=== PATIENT | female | born 1995 | race Caucasian/White ===

== ENCOUNTER 2022-03-21 21:48 | Emergency (ER) | payer SELFPAY ==
[2022-03-21 21:53] VITALS: BP 198/85; PULSE 80; RESP 18; TEMP 36.3; O2SAT 99
[2022-03-22 00:38] VITALS: BP 127/82; PULSE 87; RESP 18; O2SAT 99
--- NOTE | 2022-03-22 00:46 | ED.GENADULT ---
HPI - General Adult General Chief complaint: Upper Respiratory Infection Stated complaint: cough/shortness of breath Time Seen by Provider: 03/22/22 00:25 History of Present Illness HPI narrative: Patient is a 27-year-old female who presents ER with cough. Ongoing over the last week. Worse when she lays down to go to bed and coughs throughout the night. Productive of mcduffie phlegm. Had a negative COVID test just prior to arrival. No fevers or chills. No known sick contacts. Has been taking Hyl[place] cold and mucus and natural cold remedy that is sold [id number]. No pain in the ears or dizziness. No exertional dyspnea. Related Data Allergies Allergy/AdvReac Type Severity Reaction Status Date / Time No Known Allergies Allergy Unverified 06/15/17 23:31 Review of Systems Review of Systems: All systems reviewed & are unremarkable except as noted in HPI and below Constitutional: Constitutional: Denies chills, Denies fatigue and Denies fever(s) ENT: Denies nasal congestion and Reports sore throat Comments: Occasional postnasal drip Cardiovascular: Cardiovascular: Denies chest pain, Denies rapid heart rate and Denies radiating jaw, neck or arm pain Respiratory: Respiratory: Reports cough and Reports dyspnea Gastrointestinal: Gastrointestinal: Denies abdominal pain, Denies nausea and Denies vomiting Exam Narrative: GENERAL: Well-appearing, well-nourished, and in no acute distress. HEAD: Normocephalic, atraumatic. EYES: PERRL and EOMI. ENT: Mucous membranes moist. Normal-appearing posterior oropharynx. TMs normal bilaterally. Small amount of cerumen right ear canal. NECK: Supple. CHEST: Clear to auscultation. No respiratory distress. HEART: Regular rate and rhythm. Normal peripheral pulses. EXTREMITIES: Normal range of motion. No edema. NEURO: Alert and oriented x3. PSYCH: Normal mood and affect. Course Course Emergency Course: Lungs clear. History and exam consistent with upper respiratory infection. Blood pressure normal on repeat evaluation. Discharge home. Recommend mucinex dm. Vital Signs Vital signs: Vital Signs Temperature 97.3 F L 03/21/22 21:53 Pulse Rate 80 03/21/22 21:53 Respiratory Rate 18 03/21/22 21:53 Blood Pressure 198/85 H 03/21/22 21:53 Pulse Oximetry 99 03/21/22 21:53 Oxygen Delivery Room Air 03/21/22 21:53 Temperature 97.3 F L 03/21/22 21:53 Pulse Rate 87 03/22/22 00:38 Respiratory Rate 18 03/22/22 00:38 Blood Pressure 127/82 03/22/22 00:38 Pulse Oximetry 99 03/22/22 00:38 Oxygen Delivery Room Air 03/22/22 00:38 Medical Decision Making Vital Signs Vital Signs: Vital Signs Temperature 97.3 F L 03/21/22 21:53 Pulse Rate 80 03/21/22 21:53 Respiratory Rate 18 03/21/22 21:53 Blood Pressure 198/85 H 03/21/22 21:53 Pulse Oximetry 99 03/21/22 21:53 Oxygen Delivery Room Air 03/21/22 21:53 Temperature 97.3 F L 03/21/22 21:53 Pulse Rate 87 03/22/22 00:38 Respiratory Rate 18 03/22/22 00:38 Blood Pressure 127/82 03/22/22 00:38 Pulse Oximetry 99 03/22/22 00:38 Oxygen Delivery Room Air 03/22/22 00:38 Discharge Plan Discharge Clinical Impression: Acute viral syndrome Patient Disposition: Home, Self-Care Condition: Stable Instructions: Viral Syndrome (ED) Additional Instructions: Return the ER if you have fever over 100.4 ?F, you cannot keep down food or water, you have chest pain or shortness of breath, you have additional concerns. Prescriptions: New Mucinex DM 30-600 mg tablet extended release 12 hr 1 tablet PO Q12H Qty: 10 0RF Follow-up/Referrals: Nicole Velez MD [Physician] - 1 Week PHYSICIAN,[employer] [Primary Care Provider] -
[2022-03-22 01:59] VITALS: BP 116/69; PULSE 70; RESP 18; O2SAT 100
== END 2022-03-22 02:20 | disposition home or self-care (01) ==
PROVIDERS: Emergency Provider Emergency Medicine
DX: J06.9 Acute upper respiratory infection, unspecified (principal)
CPT/HCPCS: 99283

== ENCOUNTER 2022-06-28 00:55 | Emergency (ER) | payer OTHER, SELFPAY ==
--- NOTE | ~2022-06-28 | XR_ITS ---
EXAMINATION: XR foot RT min 3V DATE: 06/28/2022 01:24 INDICATION: Right foot pain. Injury. TECHNIQUE: 4 views of right foot were obtained. COMPARISON: None. FINDINGS: There is mild hallux valgus. No fracture. There is mild osteoarthritis of first metatarsoph alangeal joint and talonavicular joint. IMPRESSION: 1. Mild polyarticular osteoarthritis. 2. Mild hallux valgus. Reviewed, dictated and finalized at location A.
[2022-06-28 01:03] VITALS: BP 152/92; PULSE 108; RESP 12; TEMP 36.9; O2SAT 100
--- NOTE | 2022-06-28 01:19 | ED.LOWEXIN ---
HPI - Extremity Injury (Lower) General Chief Complaint: Extremity Injury, Lower <Whitney Ruiz PA-C - Last Filed: 06/28/22 02:44> Stated Complaint: right foot injury <Whitney Ruiz PA-C - Last Filed: 06/28/22 02:44> Time Seen by Provider: 06/28/22 00:59 <Whitney Ruiz PA-C - Last Filed: 06/28/22 02:44> Source: patient <Whitney Ruiz PA-C - Last Filed: 06/28/22 02:44> Mode of arrival: ambulatory <Whitney Ruiz PA-C - Last Filed: 06/28/22 02:44> Limitations: no limitations <Whitney Ruiz PA-C - Last Filed: 06/28/22 02:44> History of Present Illness HPI Narrative: This is a 27 year old female that presents to the ER for right foot pain after an injury today. Reports she had a pellet hit her foot at work. Reports swelling and pain in the area. Denies decreased range of motion or numbness. <Whitney Ruiz PA-C - Last Filed: 06/28/22 02:44> Related Data Allergies/Adverse Reactions: Allergies Allergy/AdvReac Type Severity Reaction Status Date / Time No Known Allergies Allergy Unverified 06/15/17 23:31 <Whitney Ruiz PA-C - Last Filed: 06/28/22 02:44> Review of Systems Review of Systems: CONSTITUTIONAL: Denies fever MUSCULOSKELETAL: Reports joint pain, and myalgia. NEUROLOGIC: Denies numbness <Whitney Ruiz PA-C - Last Filed: 06/28/22 02:44> All systems reviewed & are unremarkable except as noted in HPI and below <Whitney Ruiz PA-C - Last Filed: 06/28/22 02:44> [facility] Past Medical History Medical History: Medical History (Updated 06/28/22 @ 02:44 by Whitney Ruiz PA-C) No active medical problems <Whitney Ruiz PA-C - Last Filed: 06/28/22 02:44> Social History Social History: Social History (Updated 06/28/22 @ 01:21 by Whitney Ruiz PA-C) Smoking status: Never smoker <Whitney Ruiz PA-C - Last Filed: 06/28/22 02:44> Exam Narrative: GENERAL: Well-appearing, well-nourished, and in no acute distress. HEAD: Normocephalic, atraumatic. EYES: EOMI. EXTREMITIES: Normal range of motion. Mild edema about the right foot dorsal surface. Normal DP pulse. Normal sensation SKIN: Warm, dry, no rash. NEURO: No focal deficits. Alert and oriented x3. PSYCH: Normal mood and affect <Whitney Ruiz PA-C - Last Filed: 06/28/22 02:44> Course LINE INSTALLER/PA Physician Supervision I examined this patient. I discussed this patient with WILLIAM Ruiz. I agree with the assessment and plan as documented. <Romel Francois MD - Last Filed: 06/28/22 06:32> Vital Signs Vital signs: Vital Signs Temperature 98.4 F 06/28/22 01:03 Pulse Rate 108 H 06/28/22 01:03 Respiratory Rate 12 06/28/22 01:03 Blood Pressure 152/92 H 06/28/22 01:03 Pulse Oximetry 100 06/28/22 01:03 Oxygen Delivery Room Air 06/28/22 01:03 Temperature 98.4 F 06/28/22 01:03 Pulse Rate 108 H 06/28/22 01:03 Respiratory Rate 12 06/28/22 01:03 Blood Pressure 152/92 H 06/28/22 01:03 Pulse Oximetry 100 06/28/22 01:03 Oxygen Delivery Room Air 06/28/22 01:03 <Whitney Ruiz PA-C - Last Filed: 06/28/22 02:44> Vital Signs Temperature 98.4 F 06/28/22 01:03 Pulse Rate 108 H 06/28/22 01:03 Respiratory Rate 12 06/28/22 01:03 Blood Pressure 152/92 H 06/28/22 01:03 Pulse Oximetry 100 06/28/22 01:03 Oxygen Delivery Room Air 06/28/22 01:03 Temperature 98.4 F 06/28/22 01:03 Pulse Rate 108 H 06/28/22 01:03 Respiratory Rate 12 06/28/22 01:03 Blood Pressure 152/92 H 06/28/22 01:03 Pulse Oximetry 100 06/28/22 01:03 Oxygen Delivery Room Air 06/28/22 01:03 <Romel Francois MD - Last Filed: 06/28/22 06:32> MDM - Extremity Injury (Lower) MDM Narrative Medical decision making narrative: Patient presents to the emergency department after a right foot injury today at work. Patient is neurovascularly intact. No acute osseous abnormalities noted on x-ray. Patient placed in a postop sh
[2022-06-28] MEDS: HYDROcodone/acetaminophen (*CRX) 5-325 MG TABLET 1 TAB PO (01:53)
== END 2022-06-28 02:58 | disposition home or self-care (01) ==
PROVIDERS: Emergency Provider Preventive Medicine Aerospace Medicine
DX: M79.671 Pain in right foot (principal)
CPT/HCPCS: 73630; 99283; A9270

== ENCOUNTER 2023-05-31 13:44 | Emergency (ER) | payer OTHER, SELFPAY ==
--- NOTE | ~2023-05-31 | XR_ITS ---
EXAMINATION: XR finger 2nd RT min 2V DATE: 05/31/2023 14:03 INDICATION: Right hand second digit injury. TECHNIQUE: 3 views of right hand second digit were obtained. COMPARISON: None. FINDINGS: Bone alignment is normal. No fracture. Joint spaces are normal. IMPRESSION: 1. No fracture. Reviewed, dictated and finalized at location A. IMPRESSION: 1. No fracture.
[2023-05-31 13:48] VITALS: BP 159/74; PULSE 92; RESP 16; TEMP 36.6; O2SAT 99
--- NOTE | 2023-05-31 16:13 | ED.WOUNDLAC ---
HPI - Wound/Laceration General Chief Complaint: Wound/Laceration Stated Complaint: laceration Time Seen by Provider: 05/31/23 15:30 History of Present Illness HPI narrative: 28-year-old female reports for evaluation for a laceration to the plantar aspect of her right second PIP that occurred 6 hours prior to arrival. Patient states she was at work and accidentally cut herself on the tape dispenser. Bleeding controlled. Tetanus is up-to-date. Related Data Home Medications Medication Instructions Recorded Confirmed No Home Medications 07/04/22 07/04/22 Allergies Allergy/AdvReac Type Severity Reaction Status Date / Time No Known Allergies Allergy Verified 05/31/23 15:52 Review of Systems Review of Systems: CONSTITUTIONAL: Denies fever, chills EYES: Denies visual changes, redness, or discharge. ENT: Denies rhinorrhea, congestion, sore throat, or otalgia. CARDIOVASCULAR: Denies chest pain, palpitations, or edema. RESPIRATORY: Denies cough or dyspnea. GASTROINTESTINAL: Denies abdominal pain, nausea, vomiting, or diarrhea. GENITOURINARY: Denies dysuria or hematuria. SKIN: See HPI MUSCULOSKELETAL: Denies back pain, joint pain, or myalgia. NEUROLOGIC: Denies headache, numbness, dizziness, or weakness. PSYCHIATRIC: Denies anxiety or depression. [facility] Past Medical History Medical History No active medical problems Family History Family History Mother Diabetes type 1, controlled Sibling Diabetes type 1, controlled Social History Social History Smoking status: Current every day smoker Smokeless tobacco user: other Alcohol intake: current Substance use: current Substance use type: marijuana Living arrangements: with family Occupation/Education: occupation Additional occupation/education comments: [employer] Gender identity (if verbalized by the patient): Female Agree to blood products: Yes Exam Narrative: GENERAL: Well-appearing, in no acute distress. Patient resting comfortably in exam bed. She is pleasant and conversational. HEAD: Normocephalic NECK: Supple. CHEST: No respiratory distress. Clear to auscultation, no adventitious breath sounds. HEART: Regular rate and rhythm. No murmur heard. Normal peripheral pulses. EXTREMITIES: Normal range of motion. No edema. SKIN: 0.5 cm superficial laceration to the palmar aspect of the right second finger. Full flexion and extension of finger appreciated. Cap refill less than 2. Sensation intact throughout. Radial pulse 2+. No foreign bodies or deep structures visualized. NEURO: No focal deficits. Alert and oriented x3. PSYCH: Normal mood and affect. Course Vital Signs Vital signs: Vital Signs Temperature 97.9 F 05/31/23 13:48 Pulse Rate 92 05/31/23 13:48 Respiratory Rate 16 05/31/23 13:48 Blood Pressure 159/74 H 05/31/23 13:48 Pulse Oximetry 99 05/31/23 13:48 Oxygen Delivery Room Air 05/31/23 13:48 Temperature 97.9 F 05/31/23 13:48 Pulse Rate 92 05/31/23 13:48 Respiratory Rate 16 05/31/23 13:48 Blood Pressure 159/74 H 05/31/23 13:48 Pulse Oximetry 99 05/31/23 13:48 Oxygen Delivery Room Air 05/31/23 13:48 Procedures Laceration Laceration 1: Site: hand Side (If applicable): right Size (cm): 0.5 Description: linear Depth: simple, single layer Local Anesthetic: lidocaine 1% Amount of anesthesia used (mL): 1 Pre-repair: wound explored, irrigated and irrigated extensively ====== Skin Level ====== Skin layer closed with: nylon Size (cm): 5-0 Number of sutures: 1 Technique: simple, interrupted ====== Subcutaneous Layer ====== ====== Muscle Layer ====== ====== Tendon Layer ====== MDM - Wound/Laceration [facility]
--- NOTE | 2023-05-31 17:28 | PC.NURSE ---
logistics management specialist at bedside for lac repair
== END 2023-05-31 18:57 | disposition home or self-care (01) ==
PROVIDERS: Emergency Provider Physician Assistant; PCP Internal Medicine
DX: S61.210A Laceration without foreign body of right index finger without damage to nail, initial encounter (principal); W26.8XXA Contact with other sharp object(s), not elsewhere classified, initial encounter; Y99.0 Civilian activity done for income or pay
CPT/HCPCS: 12001; 73140; 99283